=== PATIENT | female | born 1955 | race Caucasian/White ===

== ENCOUNTER → 2022-02-14 10:08 | Outpatient (BNVA) | payer MEDICARE, MEDICAID, SELFPAY | PROVIDERS: PCP Internal Medicine; Visit Provider Psychiatry & Neurology Neurology | DX: R25.9 Unspecified abnormal involuntary movements (principal); R26.9 Unspecified abnormalities of gait and mobility; Z79.899 Other long term (current) drug therapy | CPT/HCPCS: 99202 ==

== ENCOUNTER 2022-03-02 08:16 | Outpatient (REF) | payer MEDICARE, MEDICAID, SELFPAY ==
--- NOTE | ~2022-03-02 | MR_ITS ---
EXAMINATION: MRI OF THE BRAIN WITHOUT CONTRAST CLINICAL INFORMATION: Unspecified abnormalities of gait and mobility. COMPARISON: CT scan of the head and CTA of the head and neck 12/24/2021. TECHNIQUE: MRI of the brain was obtained using routine sequences without contrast. FINDINGS: No diffusion abnormalities are identified to suggest an acute or subacute infarct. No mass effect or midline shift is seen. There is mild commensurate prominence of the ventricles and sulci consistent with diffuse volume loss. There are a few foci of hyperintense T2 and FLAIR signal in the deep white matter which are most consistent with chronic microvascular ischemic changes. No extra-axial fluid collections are seen. The brainstem and cerebellum are normal. No pathologic magnetic susceptibility artifact is identified on the gradient refocused acquisition. The craniovertebral junction and midline structures are normal. Marrow signal is slightly heterogenous. There are spondylitic changes in the cervical spine. The major intracranial flow-voids at the level of the [place] are preserved. The dural venous sinus flow-voids are maintained. There have been bilateral lens extractions. There are small retention cysts in the right maxillary and left ethmoid sinuses. MR/MR head/brain wo con IMPRESSION: 1. There are no acute bleeds or territorial infarcts. No masses are demonstrated. Marrow signal is slightly heterogenous. 2. There are chronic microvascular ischemic changes and there is diffuse volume loss.
== END 2022-03-02 08:17 | disposition home or self-care (01) ==
LOC: HO.MRI 08:16
PROVIDERS: Visit Provider Psychiatry & Neurology Neurology
DX: R26.9 Unspecified abnormalities of gait and mobility (principal); R25.9 Unspecified abnormal involuntary movements
CPT/HCPCS: 70551

== ENCOUNTER → 2022-04-04 15:04 | Outpatient (BNVA) | payer MEDICARE, SELFPAY | PROVIDERS: PCP Internal Medicine; Visit Provider Psychiatry & Neurology Neurology | DX: R25.9 Unspecified abnormal involuntary movements (principal); R26.9 Unspecified abnormalities of gait and mobility | CPT/HCPCS: 99212 ==

== ENCOUNTER 2022-04-19 08:15 | Outpatient (REF) | payer MEDICARE, SELFPAY ==
--- NOTE | 2022-04-19 08:17 | EEG_ITS ---
Waking background activity consists of a diffuse 6 to 7 hertz theta, rarely getting up to 8 hertz posteriorly with left frontocentral, occasional sharp configuration theta discharges. Photic stimulation is without activation. Hyperventilation was omitted. IMPRESSION: This EEG is considered abnormal due to mild diffuse background slowing and some sharp configuration waveforms in the left frontocentral region, which may suggest an element of focal cerebral irritability. Clinical correlation is suggested. MD MARTÍN Link/KISHAN / [id number]
== END 2022-04-19 08:16 | disposition home or self-care (01) ==
LOC: HO.NEURO 08:15
PROVIDERS: Visit Provider Psychiatry & Neurology Neurology
DX: R25.9 Unspecified abnormal involuntary movements (principal)
CPT/HCPCS: 95816

== ENCOUNTER 2022-06-07 12:25 | Outpatient (REF) | payer MEDICARE, SELFPAY ==
--- NOTE | 2022-06-07 12:29 | EEG_ITS ---
The waking background activity consists of an 8.5 to 9 hertz moderate voltage posterior alpha frequency that is seen symmetrically and attenuates well with eye opening while low-voltage fast frequencies predominate anteriorly. Drowsiness is characterized by diffuse theta slowing. During sleep, symmetrical frontocentral sleep spindles develop over both hemispheres. Arousals are unremarkable. Three episodes of 1 to 2.5 seconds bifrontal sharp and slow delta complexes are seen with a sharp wave component phase reversal at F3. No clinical symptoms are reported. IMPRESSION: This 24-hour ambulatory EEG is considered mildly abnormal due to 3 brief episodes of bifrontal, left greater than right sharp and slow wave discharges at 2 hertz frequency that could correlate with a paroxysmal disorder. Originating in the left frontal region. Clinical correlation is suggested. MD MARTÍN Link/KISHAN / [id number]
== END 2022-06-07 12:26 | disposition home or self-care (01) ==
LOC: HO.NEURO 12:25
PROVIDERS: Visit Provider Psychiatry & Neurology Neurology
DX: R25.9 Unspecified abnormal involuntary movements (principal)
CPT/HCPCS: 95708

== ENCOUNTER → 2022-08-03 11:31 | Outpatient (BNVA) | payer MEDICARE, SELFPAY | PROVIDERS: PCP Internal Medicine; Visit Provider Psychiatry & Neurology Neurology | DX: R25.9 Unspecified abnormal involuntary movements (principal); R26.9 Unspecified abnormalities of gait and mobility; R56.9 Unspecified convulsions | CPT/HCPCS: 99212 ==

== ENCOUNTER → 2022-12-05 09:01 | Outpatient (BNVA) | payer MEDICARE, SELFPAY | PROVIDERS: PCP Internal Medicine; Visit Provider Psychiatry & Neurology Neurology | DX: R26.9 Unspecified abnormalities of gait and mobility (principal); R25.9 Unspecified abnormal involuntary movements; R56.9 Unspecified convulsions | CPT/HCPCS: 99212 ==

== ENCOUNTER 2023-04-03 13:25 | Outpatient (AMB) | payer MEDICARE, SELFPAY ==
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
[2023-04-03 13:36] VITALS: BP 110/62; PULSE 70; O2SAT 96; BMI 20.6
== END 2023-04-03 13:58 | disposition home or self-care (01) ==
PROVIDERS: PCP Internal Medicine; Visit Provider Psychiatry & Neurology Neurology
DX: R56.9 Unspecified convulsions (principal); R26.9 Unspecified abnormalities of gait and mobility; R25.9 Unspecified abnormal involuntary movements
CPT/HCPCS: 99214

== ENCOUNTER → 2023-04-03 13:25 | Outpatient (BNVA) | payer MEDICARE, SELFPAY | PROVIDERS: PCP Internal Medicine; Visit Provider Psychiatry & Neurology Neurology | DX: R56.9 Unspecified convulsions (principal); R25.9 Unspecified abnormal involuntary movements; R26.9 Unspecified abnormalities of gait and mobility; R29.6 Repeated falls | CPT/HCPCS: 99212 ==

== ENCOUNTER 2023-10-13 12:39 | Outpatient (AMB) | payer MEDICARE, SELFPAY ==
[2023-10-13 12:49] VITALS: BP 102/68; PULSE 72; RESP 16; BMI 20.2
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
== END 2023-10-13 13:21 | disposition home or self-care (01) ==
PROVIDERS: PCP Internal Medicine; Visit Provider Psychiatry & Neurology Neurology
DX: R56.9 Unspecified convulsions (principal); R26.9 Unspecified abnormalities of gait and mobility; R25.9 Unspecified abnormal involuntary movements
CPT/HCPCS: 99214

== ENCOUNTER → 2023-10-13 12:39 | Outpatient (BNVA) | payer MEDICARE, SELFPAY | PROVIDERS: PCP Internal Medicine; Visit Provider Psychiatry & Neurology Neurology | DX: R56.9 Unspecified convulsions (principal); R26.9 Unspecified abnormalities of gait and mobility; R25.9 Unspecified abnormal involuntary movements | CPT/HCPCS: 99212 ==

== ENCOUNTER 2023-12-13 11:18 | Outpatient (AMB) | payer MEDICARE, SELFPAY ==
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
[2023-12-13 11:24] VITALS: BP 118/66; PULSE 76; RESP 16; BMI 20.1
== END 2023-12-13 12:24 | disposition home or self-care (01) ==
PROVIDERS: PCP Internal Medicine; Visit Provider Psychiatry & Neurology Neurology
DX: R56.9 Unspecified convulsions (principal); R26.9 Unspecified abnormalities of gait and mobility; R25.9 Unspecified abnormal involuntary movements; R41.89 Other symptoms and signs involving cognitive functions and awareness
CPT/HCPCS: 99214; G2211

== ENCOUNTER → 2023-12-13 11:18 | Outpatient (BNVA) | payer MEDICARE, SELFPAY | PROVIDERS: PCP Internal Medicine; Visit Provider Psychiatry & Neurology Neurology | DX: R26.9 Unspecified abnormalities of gait and mobility (principal); R25.9 Unspecified abnormal involuntary movements; R56.9 Unspecified convulsions; R41.89 Other symptoms and signs involving cognitive functions and awareness | CPT/HCPCS: 99212 ==

== ENCOUNTER 2023-12-13 12:26 | Outpatient (REF) | payer MEDICARE, SELFPAY ==
[2023-12-13 18:44] LABS: MANUAL DIFF FLAG NO
[2023-12-13 18:47] LABS: Basophils Percent Auto 0.2 % (0-2); Eosinophils Percent Auto 0.9 % (0-4); Hematocrit 38.6 % (37.0-47.0); Imm Gran Abs Auto 0.02 X10*3/uL (0.00-0.03); Imm Gran Pct Auto 0.4 % (0.0-0.4); Lymphocytes Percent Auto 22.2 % (20-40); Mean Corpuscular HGB Conc 33.7 g/dl (31.0-35.0); Mean Corpuscular Hemoglobin 29.8 pg (27.0-33.0); Mean Corpuscular Volume 88.5 fL (80.0-98.0); Mean Platelet Volume 10.8 fL (9.4-12.3); Monocytes Absolute Auto 0.3 X10*3/uL (0.1-1.2); Monocytes Percent Auto 7.3 % (2-11); Neutrophils Absolute Auto 3.2 x10*3/uL (2.0-8.3); Platelet Count 182 X10*3/uL (160-400); Red Blood Count 4.36 X10*6/uL (4.20-5.50); Red Cell Distribution Width 12.7 % (11.0-16.0); White Blood Count 4.7 X10*3/uL (4.8-10.8)
[2023-12-13 19:14] LABS: Alanine Aminotransferase 17 U/L (0-31); Albumin Level 4.3 g/dL (3.5-5.0); Alkaline Phosphatase 109 U/L (39-117); Anion Gap 9 (12-20); Aspartate Amino Transferase 24 U/L (5-31); Bilirubin Total 0.5 mg/dL (0.0-1.0); Blood Urea Nitrogen 17 mg/dL (9-16); Calcium 9.8 mg/dL (8.4-10.2); Carbon Dioxide 31 mmol/L (22-29); Chloride 104 mmol/L (96-108); Estimated Glomerular Filt Rate > 60; Glucose Random 88 mg/dL (60-115); Potassium 3.6 mmol/L (3.3-5.1); Sodium 140 mmol/L (135-145); Total Protein 7.4 g/dL (6.5-8.0)
[2023-12-13 19:30] LABS: TSH reflex Free T4 1.95 uIU/mL (0.32-4.0)
[2023-12-13 19:35] LABS: Erythrocyte Sedimentation Rate 17 MM/HR (0-20)
[2023-12-13 19:39] LABS: Folate > 20.0 ng/mL (> or = 4.0); Vitamin B12 708 pg/mL (200-900)
== END 2023-12-13 12:27 | disposition home or self-care (01) ==
LOC: HO.HKASLDS 12:26
PROVIDERS: Visit Provider Psychiatry & Neurology Neurology
DX: R25.9 Unspecified abnormal involuntary movements (principal); R41.89 Other symptoms and signs involving cognitive functions and awareness
CPT/HCPCS: 36415; 80053; 82607; 82746; 84443; 85025; 85652